=== PATIENT | female | born 1970 | race Caucasian/White ===

== ENCOUNTER 2019-08-06 12:09 | Emergency (ER) | payer MEDICAID ==
[~2019-08-06] VITALS: Ht 160 cm; Wt 71.7 kg
--- NOTE | 2019-08-06 12:20 | NUR ---
PATIENT TO ER #2 WITH FULL CARDIAC MONITORING, SAO2 AND ABP
[2019-08-06] MEDS ORDERED: TRAM50TA2 PO (12:21)
[2019-08-06] MEDS ORDERED: AMLO5TAB4 PO (12:21)
[2019-08-06 12:22] VITALS: BP_SYST 165
--- NOTE | 2019-08-06 12:24 | NUR ---
Patient arrived with c/c of history of rheumatoid arthritis, patient arrived via BLS ambulance. Patients called due to uncontrollable pain. Patient states for the past month her pain has increased but has become severe over the past 24 hours. Patient states pain is the worst to wrists, hands, shoulders, and feet. Patients hands are tender to light touch. Patient states she follows up with a primary MD, and takes methotrexate to help. Patient states no other c/c. Will continue to follow up and monitor.
[2019-08-06] MEDS ORDERED: AZU500 PO (12:39)
[2019-08-06] MEDS ORDERED: LEVO-145 PO (12:39)
[2019-08-06] MEDS ORDERED: HYDR200T80 PO (12:39)
[2019-08-06] MEDS ORDERED: METH7.5T2 PO (12:39)
[2019-08-06 13:28] LABS: BASOPHILS % (AUTO) 0.2 % (0.0-2.0); EOSINOPHILS % (AUTO) 0.3 % (0.0-4.0); HEMATOCRIT 27.8 % (36-48); HEMOGLOBIN 8.8 g/dL (12.0-16.0); LYMPHOCYTES # (AUTO) 0.6 K/uL (1.0-5.5); LYMPHOCYTES % (AUTO) 4.8 % (20.5-51.5); MEAN CORPUSCULAR HEMOGLOBIN 25 pg (27-31); MEAN CORPUSCULAR HGB CONC 32 % (32-36); MEAN CORPUSCULAR VOLUME 78 fL (79.0-98.0); MONOCYTES # (AUTO) 0.2 K/uL (0.0-1.0); MONOCYTES % (AUTO) 1.5 % (1.7-9.3); NEUTROPHILS # (AUTO) 12.2 K/uL (1.8-7.7); NEUTROPHILS % (AUTO) 93.2 % (40.0-70.0); PLATELET COUNT (AUTO) 388 K/uL (130-430); RED BLOOD CELL COUNT(AUTO) 3.56 MIL/uL (4.2-6.2); RED CELL DISTRIBUTION WIDTH 18.4 % (9.0-15.0); WHITE BLOOD COUNT (AUTO) 13.1 K/uL (4.8-10.8)
[2019-08-06 13:35] LABS: CALCIUM 9.4 mg/dL (8.4-11.0); CREATININE 0.73 mg/dL (0.55-1.30); POTASSIUM 3.3 mmol/L (3.5-5.1)
[2019-08-06 13:45] LABS: ALBUMIN 3.6 g/dL (3.4-4.8); C-REACTIVE PROTEIN QUANT 4.6 mg/dL (0-0.5); TOTAL BILIRUBIN 0.4 mg/dL (0.0-1.0)
[2019-08-06 14:05] LABS: ERYTHROCYTE SEDIMENTATION RATE 38 MM/HR (0-20)
--- NOTE | 2019-08-06 14:44 | NUR ---
Patient laying in bed, calm, and resting. Needs are met at this time. Will continue to follow up and monitor.
[2019-08-06] MEDS ORDERED: KETOROLAC TROMETHAMINE 15 MG VIAL IVP ONE (14:45)
[2019-08-06 16:45] VITALS: BP_SYST 144
[2019-08-06] MEDS ORDERED: HYDROcodone/ACETAMIN 5-325 MG TAB (NORCO/ VICODIN) PO ONE (16:45)
--- NOTE | 2019-08-06 16:45 | NUR ---
Patient given written and verbal discharge instructions and verbalizes understanding. ER MD discussed with patient the results and treatment provided. Patient in stable condition. ID arm band removed. IV catheter removed intact and dressing applied, no active bleeding. Rx of [place] and Prednisone given. Patient educated on pain management and to follow up with PMD. Pain Scale 4/10. Opportunity for questions provided and answered. Medication side effect fact sheet provided.
== END 2019-08-06 16:45 | disposition home or self-care (01) ==
LOC: SED 12:09
DX: M06.80 Other specified rheumatoid arthritis, unspecified site (principal); D64.9 Anemia, unspecified; M79.641 Pain in right hand; Z79.899 Other long term (current) drug therapy
CPT/HCPCS: 36415; 80053; 84702; 85025; 85651; 86140; 96374; 99283; J1885